=== PATIENT | female | born 1985 | race Caucasian/White ===

== ENCOUNTER 2017-04-08 18:57 | Emergency (ER) | payer OTHER ==
[2017-05-21] MEDS ORDERED: SUBOXONE 8 MG-1 EACH SL (18:08)
[2017-05-21] MEDS ORDERED: CATAPRES 0.1MG0.1 MG PO (18:08)
[2017-05-21] MEDS ORDERED: KEPPRA1000 MG PO (18:10)
[2017-05-21] MEDS ORDERED: LAMICTAL100 MG PO (18:11)
[2017-05-21] MEDS ORDERED: VELPHORO500 MG PO (18:12)
[2017-05-21] MEDS ORDERED: NEURONTIN 300300 MG PO (18:13)
[2017-05-21] MEDS ORDERED: COREG 25MG TAB25 MG PO (18:14)
[2017-05-21] MEDS ORDERED: NIFEDIPINE ER60 M1 PO (18:15)
[2017-05-21] MEDS ORDERED: PROTONIX 40 MG40 M1 PO (18:16)
== END 2017-04-08 21:00 | disposition left against medical advice (07) ==
LOC: ER1 18:57
DX: Z53.21 Procedure and treatment not carried out due to patient leaving prior to being seen by health care provider (principal)